=== PATIENT | female | born 1975 | race Caucasian/White ===

== ENCOUNTER → 2020-03-27 | Day surgery (SDC) | payer OTHER ==
[~2020-03-27] MED LIST: AMBIEN10 MG PO; AMOXICILLIN500 M1 PO; CRESTOR10 MG PO; DEXAMETHASONE SOD PHOS 10 MG/1 ML VIAL ONE; DIM SGS PO; DIOVAN HCT 3201 EACH PO; EPINEPHRINE HCL 1:1000 1ML 1 MG/ML AMP ONE; GLYCOPYRROLATE 0.2 MG/ML VIAL ONE; HYDROCODON-ACE1 EAC9 PO; HYDROMORPHONE 1MG/1ML INJ ONE; KETOROLAC TROMETHAMINE 30 MG/ML VIAL ONE; KLONOPIN0.5 MG PO; LIDOCAINE 1% W/EPINEPHRINE 20 ML VIAL ONE; LIDOCAINE HCL 2% LOCAL INJ 5 ML SDV VIAL INJ ONE; LINZESS145 MCG PO; METOCLOPRAMIDE HCL 10 MG/2ML VIAL ONE; NEOSTIGMINE 1 MG/ML 10ML VIAL ONE; ONDANSETRON HCL INJ 2MG/ML 2ML 2 MG/ML VIAL ONE; PROGESTERONE200 MG PO; PROPOFOL IV EMULSION 10 MG/ML 20 ML VIAL ONE; PROTONIX20 MG PO; PROZAC40 MG PO; ROCURONIUM BROMIDE 10 MG/ML 5ML VIAL IV ONE; SEVOFLURANE INHAL SOLN 250 ML PEN BTL ONE; SUGAMMADEX SODIUM 200 MG/2 ML VIAL IV ONE; VYVANSE60 MG PO; ZOFRAN8 MG SL; ZYRTEC10 M3 PO; [UNRECOGNIZED DRUG - OTHER] IJ; [UNRECOGNIZED DRUG - OTHER] IJ
[2020-03-27 12:05] VITALS: BP 118/59
--- NOTE | 2020-03-27 12:44 | Operative Report ---
DATE OF PROCEDURE: 03/27/2020 SURGEON: Cornell Woods MD CHIEF COMPLAINT: Chronic sinusitis, nasal obstruction. POSTOPERATIVE DIAGNOSES: Chronic sinusitis, nasal obstruction. OPERATIVE PROCEDURES: Septoplasty, left maxillary sinus antrostomy, resection of inflamed tissue, and left maxillary antrum. ANESTHESIOLOGIST: Dr. Ackerman. HISTORY OF PRESENT ILLNESS: This 44-year-old female has history of nasal obstruction, postnasal drip discharge from her nose. The patient has left-sided facial pain. She had a sinuplasty by another physician before is only work for short period of time. The patient was noted to have a polyp in the maxillary antrum on the left side in the maxillary sinus per her dentist. On examination, she was noted to have a deviated nasal septum to the left anteriorly about 20% to 30%. A CT scan of paranasal sinuses done before surgery showed the patient has confirmed deviated nasal septum and showed that she has a polyp in the left maxillary antrum. The patient's condition has been treated with more than 12 weeks of antibiotics, topical nasal steroid, decongestant with no improvement. It was decided that endoscopic sinus surgery, septoplasty, and other necessary procedure will be beneficial for her. DESCRIPTION OF PROCEDURE: The patient was taken to the operating room, put under general anesthesia, endotracheally intubated. The nose was injected with 1% Xylocaine with 1:100,000 epinephrine for hemostasis. Epinephrine-soaked pledget was inserted in nose and subsequently removed. The left paranasal sinuses were approached. Middle turbinate was medialized using a curved probe, the natural ostia of maxillary sinus was entered, this was enlarged anteriorly and posteriorly using a backbiter and Cory-Cut forceps respectively. Inflamed tissue was noted in the medial superior portion of the maxillary antrum, this was dissected using a microshaver. The maxillary antrum on the left side was re-examined using a 45 degree and subsequently a 70 degree telescope to make sure that no other abnormality or residual tissue was noted, it was noted to be clear. The septoplasty was performed. A hemitransfixion incision was done on the left side. Mucoperichondrial flap was elevated on the left. Bony cartilaginous junction was encountered and this was . Perpendicular plate of the ethmoid was transected, this was removed along with the vomer. Septal spur cartilaginous portion removed using a Dalton elevator. Bony spur removed using a 4 mm straight chisel. Quadrangular cartilage of the being freed from posterior inferior constraint was able to swing back in the midline. The hemitransfixion incision was closed using 4-0 chromic suture in interrupted fashion. Septal whipstitch was done using 4-0 plain gut suture to reapproximate the mucoperichondrial flap and prevent septal hematoma formation. Nasal pull was inserted in the left middle meatal area to prevent synechiae formation and for hemostasis. The patient tolerated the above procedure well with estimated blood loss was about 20 mL. She was given 20 mg of Decadron intraoperatively. The patient was able to be transferred to recovery room in stable condition. MD RUSTY GarzonH/MODL /[id number]
--- NOTE | 2020-03-28 08:39 | Pre Op History & Physical ---
DATE OF SURGERY: 03/27/2020 CHIEF COMPLAINT: Chronic sinusitis and nasal obstruction. HISTORY OF PRESENT ILLNESS: This 44-year-old female on a workup by her dentist, Dr. Leo, was showed to have left maxillary sinusitis. The patient 4 years ago did get left cheek swelling with itchiness. She had a balloon sinuplasty elsewhere many years ago. She denies any nasal obstruction. Does complain of frontal and maxillary pressure. She has no epistaxis. Has normal sense of smell. No previous injury to her nose. Her condition has been treated with more than 12 weeks of antibiotics, topical nasal steroid, decongestant with no improvement. CT scan of paranasal sinuses done recently showed the patient has chronic sinusitis retention cyst in the left maxillary sinus with deviated nasal septum to the left. REVIEW OF SYSTEMS: System review showed no recent cardiovascular, respiratory, or GI problem. 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 PAST SURGICAL HISTORY: The patient has two previous C-sections, hysterectomy, breast augmentation, ORIF of the left wrist and lower back surgery. ALLERGIES: THE PATIENT IS ALLERGIC TO MORPHINE AND SULFA. MEDICATIONS: She is on: 1. Vyvanse. 2. Prozac. 3. Diovan. 4. Vitamin A, D, K. 5. Zyrtec. 6. Klonopin. 7. Hydrocodone for back pain. 8. Zofran. 9. Ambien. 10. Multivitamin. 11. Testosterone. 12. Linzess. 13. Progesterone. 14. Crestor. SOCIAL HISTORY: She smokes about half a pack a day. She is a nondrinker. FAMILY HISTORY: Noncontributory. PHYSICAL EXAMINATION: VITAL SIGNS: Within normal limits. HEENT: Ear exam showed normal tympanic membrane bilaterally. Nasal exam showed deviated nasal septum to the left side about 20-30%. Oropharynx and oral cavity show no obvious abnormality. NECK: Showed no lymph node or thyroid palpable. CHEST: Showed good air entry bilaterally. CARDIOVASCULAR: S1, S2. No murmur noted. ASSESSMENT AND PLAN: Mrs. Alfonso has chronic sinusitis, nasal obstruction, which has been resistant to conservative therapy. Suggested treatment is endoscopic sinus surgery, septoplasty, resection of inferior turbinate and other necessary procedure. Complication of procedure includes, but not limited to bleeding, infection, CSF leak, blindness, double vision, meningitis, septal perforation, septal hematoma, persistent nasal obstruction, persistent nasal crusting, nasal deformity, persistent recurrence of the sinus problem and persistent recurrence of the headaches that she has been experiencing. Alternatives will be continue observation, continue antibiotic therapy, topical nasal steroid therapy, systemic steroid therapy, decongestant. The patient has been seen by Dr. Barker, the valve tester for clearance before surgery. The patient has elected to undergo surgical procedure. MD RUSTY GarzonH/MODL /[id number] cc: Dr. Vidal Leo
== END | disposition home or self-care (01) ==
LOC: OR 06:24
PROVIDERS: ATTEND Otolaryngology Otolaryngology/Facial Plastic Surgery
DX: J32.0 Chronic maxillary sinusitis (principal); J34.89 Other specified disorders of nose and nasal sinuses; J33.8 Other polyp of sinus; D68.51 Activated protein C resistance; I10 Essential (primary) hypertension; E78.5 Hyperlipidemia, unspecified; K21.9 Gastro-esophageal reflux disease without esophagitis; F32.9 Major depressive disorder, single episode, unspecified; F41.9 Anxiety disorder, unspecified; F17.210 Nicotine dependence, cigarettes, uncomplicated; Z88.6 Allergy status to analgesic agent; Z88.2 Allergy status to sulfonamides; Z86.711 Personal history of pulmonary embolism
CPT/HCPCS: 30520; 31267; 88300; 88305; 93005; J0171; J1100; J1170; J1885; J2001; J2405; J2704; J2710; J2765